=== PATIENT | female | born 1955 | race Caucasian/White ===

== ENCOUNTER 2017-05-24 10:53 | Observation (INO) ==
[2017-05-24 11:54] LABS: Basophils % 0.3 %; Eosinophils # 0.1 K/mcL (0.0-0.6); Eosinophils % 1.8 %; Hematocrit 43.6 % (35.3-44.9); Hemoglobin 14.5 g/dL (11.5-15.4); Immature Granulocytes % 0.2 % (0-4); Lymphocytes # 2.1 K/mcL (0.6-4.6); Mean Corpuscular HGB Conc 33.3 g/dL (31.6-35.5); Mean Corpuscular Hemoglobin 27.8 pg (28.0-33.3); Mean Corpuscular Volume 83.7 fL (83.0-100.0); Mean Platelet Volume 8.9 fL (9.4-12.4); Monocytes # 0.5 K/mcL (0.0-1.3); Monocytes % 7.6 %; Neutrophils # 3.6 K/mcL (1.6-8.9); Platelet Count 296 K/mcL (140-400); Red Blood Count 5.21 M/mcL (3.82-4.97); Red Cell Distribution Width 13.3 % (11.5-14.5); Segmented Neutrophils % 57.1 %
[2017-05-24 12:10] LABS: BUN/Creatinine Ratio 17 (6-26); Blood Urea Nitrogen 13 mg/dL (7-20); Calcium 9.5 mg/dL (8.6-10.8); Carbon Dioxide 25 mEq/L (19-29); Chloride 109 mEq/L (98-109); Glucose 91 mg/dL (70-99); Osmolality,Calculated 294 (280-300); Potassium 4.6 mEq/L (3.5-4.5); Sodium 142 mEq/L (136-145); eGFR For African Americans > 60 (> 60); eGFR For Non-African Americans > 60 (> 60)
--- NOTE | 2017-05-24 12:41 | Emergency Department Note ---
Disposition Clinical Impression: Chest pain Qualifiers: Chest pain type: other chest pain Qualified Code(s): R07.89 - Other chest pain ; R07.8 - Other chest pain Disposition: Admitted As Inpatient Condition: Good Referrals: Adrien Mckeon MD [Primary Care Provider] - Forms: ED Satisfaction Letter Time of Disposition: 13:06 General Adult HPI - General Chief complaint: ED Chest Pain Stated complaint: chest pain Time Seen by Provider: 05/24/17 11:03 Source: patient Mode of arrival: ambulatory Limitations: no limitations Nursing Notes Reviewed: Yes Vital Signs Reviewed: Yes - History of Present Illness HPI Narrative: 61-year-old female presented to the emergency department complaining of chest pain. Patient states since Wednesday she has been having chronic reproducible chest pain located near her left breast. It does not radiate. She denies any diaphoresis, nausea, vomiting with these symptoms. He states proximal and 4 weeks ago she fell on her left side but has not had any complications from that fall. She saw her primary care physician this week who told her to take ibuprofen and to come to the emergency department if the pain got worse. Patient has not tried anything at home for this pain. She states it is worse when she moves around or when she takes a deep breath. Patient did have an echo and stress test completed approximately 2 years ago which was within normal limits. Patient denies any shortness of breath, nausea, vomiting, abdominal pain. She states she has no other medical conditions. Patient has no other complaints at this time. Pain Scale: 5 - Related Data Allergies Allergy/AdvReac Type Severity Reaction Status Date / Time aspirin [ASA] Allergy Hives Verified 11/22/15 10:13 cephalexin [From Keflex] Allergy Hives Verified 11/22/15 10:13 All systems ED: reviewed and negative except as stated. Constitutional: Denies: fever, chills, weakness Eyes: Reports: as per HPI ENT ED: Reports: as per HPI Cardiovascular: Reports: chest pain. Denies: palpitations, dyspnea on exertion Respiratory: Denies: cough, dyspnea, wheezes Gastrointestinal: Denies: abdominal pain, nausea, vomiting Genitourinary: Reports: as per HPI Musculoskeletal: Reports: as per HPI Integumentary: Denies: rash, abrasion, lesions Neurological: Reports: as per HPI Psychiatric: Reports: as per HPI Endocrine: Reports: as per HPI Hematological/Lymphatic: Reports: as per HPI Allergic/Immunologic: Reports: as per HPI Past Medical History - Past Medical History Attestation: Yes The following information was validated with the patient. Medical history: Reports: asthma, hypertension Surgical history: Reports: cholecystectomy Psychiatric history: Reports: anxiety - Social History Smoking Status: Never smoker Smokeless Tobacco Status: No Drug use: Reports: none Physical Exam - General Limitations: no limitations General appearance: alert, in no apparent distress - Head Head exam: atraumatic, normocephalic, normal inspection - Eye Eye exam: Present: normal appearance. Absent: scleral icterus, conjunctival injection - Chest Chest inspection: Present: normal inspection, symmetric chest wall rise, tenderness (Reproducible tenderness over the superior medial aspect of the breast. No obvious mass noted. No ecchymosis or crepitus noted.) - Respiratory Respiratory exam: Present: normal lung sounds bilaterally. Absent: respiratory distress, wheezes - Cardiovascular Cardiovascular exam: Present: regular rate, normal rhythm, normal heart sounds - Abdominal Exam Abdominal exam: Present: soft, Non-Tender. Absent: distention, guarding, rebound - Extremities Exam Extremities exam: Present: normal inspection, full ROM - Neurological Exam Neurological exam: Present: alert, oriented X3 - Psychiatric Psychiatric exam: Present: normal affect, normal mood - Skin Skin exam: Present: warm, intact Course Course Narrative: 61-year-old female presenting to the emergency department with complaint of reproducible chest pain. Patient was previously worked up approximately 2 years ago with a stress echo which was within normal limits. Although today she does have nonspecific changes on her EKG. We will perform a chest pain workup including troponin, EKG we will also obtain an x-ray of the left ribs. Disposition pending results. Patient alert and oriented 3 in the room. She is compliant with this plan and is stable at this time with stable vital signs. - Reevaluation(s) Reevaluation #1: All patient's lab work has come back within normal limits including chest and rib x-rays. Upon reevaluation the patient she did state she had chest pressure this morning on exertion while trying to carry suitcases and some nausea during that time. Due to this concerning history and the nonspecific EKG changes of ischemia we will admit the patient at this time for chest pain rule out. Patient's alert and oriented 3 and the remainder stable vital signs at this time. She agrees with this plan. at bedside also agrees with this plan. Spoke with the hospitalist Dr. Navarrete who agrees to accept the patient at this time Time: 13:06 Vital Signs Temperature 97.8 F 05/24/17 11:00 Pulse Rate 75 05/24/17 11:00 Respiratory Rate 18 05/24/17 11:00 Blood Pressure 121/84 05/24/17 11:00 O2 Sat by Pulse Oximetry 97 05/24/17 11:00 Temperature 97.8 F 05/24/17 11:00 Pulse Rate 75 05/24/17 11:00 Respiratory Rate 18 05/24/17 11:00 Blood Pressure 121/84 05/24/17 11:00 O2 Sat by Pulse Oximetry 97 05/24/17 11:00 Oxygen Delivery Oxygen Delivery Room Air Medical Decision Making - Medical Records Medical records reviewed: Yes I reviewed the patient's medical records. - Lab Data Lab results reviewed: Yes I reviewed the patient's lab results. Result diagrams: 05/24/17 11:42 05/24/17 11:42 Lab Results 05/24/17 05/24/17 05/24/17 Range/Units 11:42 11:42 11:42 WBC 6.3 (4.3-11.1) K/mcL RBC 5.21 H (3.82-4.97) M/mcL Hgb 14.5 (11.5-15.4) g/dL Hct 43.6 (35.3-44.9) % MCV 83.7 (83.0-100.0) fL MCH 27.8 L (28.0-33.3) pg MCHC 33.3 (31.6-35.5) g/dL RDW 13.3 (11.5-14.5) % Plt Count 296 (140-400) K/mcL MPV 8.9 L (9.4-12.4) fL Immature Gran % 0.2 (0-4) % Seg Neutrophils % 57.1 % Lymphocytes % 33.0 % Monocytes % 7.6 % Eosinophils % 1.8 % Basophils % 0.3 % Neutrophils # 3.6 (1.6-8.9) K/mcL Lymphocytes # 2.1 (0.6-4.6) K/mcL Monocytes # 0.5 (0.0-1.3) K/mcL Eosinophils # 0.1 (0.0-0.6) K/mcL Basophils # 0.0 (0.0-0.2) K/mcL Sodium 142 (136-145) mEq/L Potassium 4.6 H (3.5-4.5) mEq/L Chloride 109 (98-109) mEq/L Carbon Dioxide 25 (19-29) mEq/L BUN 13 (7-20) mg/dL Creatinine 0.76 (0.57-1.11) mg/dL Est GFR ( Amer) > 60 (> 60) Est GFR (Non-Af Amer) > 60 (> 60) BUN/Creatinine Ratio 17 (6-26) Glucose 91 (70-99) mg/dL Calculated Osmolality 294 (280-300) Calcium 9.5 (8.6-10.8) mg/dL Troponin I 0.00 (0-0.03) ng/mL - Radiology Data Radiology results reviewed: Yes I reviewed the patient's radiology results. Ribs w/Chest X-Ray 05/24/17 11:25 IMPRESSION: Intact left ribs. No acute abnormality. D/ / Michael Clark MD / Michael Clark MD Interpreting Provider: Michael Clark MD - EKG Data EKG #1 EKG attestation: Yes I reviewed and interpreted this EKG. EKG results narrative: Sinus rhythm 76 bpm nonspecific T-wave abnormalities in V1, V2, aVL. RI interval 202, QRS 76, QTc 389. Attestation Statement - Attestation Attestation: I examined this patient and my medical decision-making was reviewed with the Resident Physician, Dr. Keller. I agree with the documented findings, disposition and treatment plan as described except to the extent set forth below. Patient is a 61-year-old white female history of hypertension who presents emergency Department with complaints initially of reproducible chest wall pain along the left sternal border and along her anterior lateral lower ribs. Patient reports falling while outside working approximately 3 weeks ago and landing onto her left shoulder and anterior chest wall. Patient insists that she has not had any chest wall pain or pain that is exacerbated with movement or deep breathing for over 3 weeks since that fall. She has no overlying bruising or abrasions noted to the area but has noticed that she has been having some tenderness in the chest that started 3 weeks after the fall. This began last Wednesday. Patient then reports after being on a camping trip over the weekend she came home last night and was carrying and heavy luggage from the car and on exerting herself to do this she became diaphoretic she became short of breath she had worsening pain but this time described it as "an elephant sitting on my chest" and it was associated with severe overwhelming nausea. Because the patient to sit down and rest and after a few minutes the symptoms abated. Patient reports when she got back To continue bringing in luggage that the symptoms recurred again and caused her to have to sit down and rest. Since that time patient's been experiencing underlying nausea which is worsened with exertion as well as shortness of breath and chest discomfort. Currently here in the ER while at rest patient is having no chest heaviness nausea shortness of breath or any other symptoms but does have the reproducible chest wall pain in her left anterior chest with palpation. I agree with patient's physical exam findings as documented vital signs are stable on arrival. EKG on arrival shows normal sinus rhythm with T-wave inversion in the anterior leads. We have no old EKG for comparison. Patient received aspirin and was kept on cardiac surgeon and pulse ox labs were obtained and a chest x-ray including left rib series was obtained. Chest x-ray was unremarkable for any rib injury, no pneumothorax and no acute abnormality was seen. Patient's labs including her troponin were unremarkable. I am concerned about the exertional component of the symptoms over the last 24-36 hours and patient's heart score equals 4. I spoke with the patient and patient is in agreement with staying in the hospital for further evaluation of this chest pain. Case was discussed with hospitalist who accepted patient for admission for further evaluation and management. Patient remains pain-free at this time with stable vital signs.
[2017-05-24] MEDS ORDERED: Ondansetron 4 MG/2 ML VIAL IVP PRN (14:56)
[2017-05-24] MEDS ORDERED: *HR* Morphine 2 MG/ML SYRINGE IVP PRN (14:56)
[2017-05-24] MEDS ORDERED: Acetaminophen 325 MG TABLET PO PRN (14:56)
[2017-05-24] MEDS ORDERED: Naloxone 0.4 MG/ML INJ IVP PRN (14:56)
[2017-05-24] MEDS ORDERED: Nitroglycerin 0.4 MG TAB.SUBL SL PRN (15:02)
[2017-05-24] MEDS ORDERED: Ipratropium/Albuterol Neb 3 ML IH PRN (15:52)
--- NOTE | 2017-05-24 15:56 | Internal Med History&Physical ---
<Riley Rodríguez - Last Filed: 05/24/17 16:18> Date of Encounter: 05/24/17 Time of Encounter: 14:00 Assessment and Plan (1) Chest pain Current visit: Yes Status: Acute Acute chest pain since last Wednesday that pt. describes as intermittent sharp, stabbing pain followed by pressure in left chest w/radiation to left arm. Pt. reports acute fall 4 weeks ago w/o complication. XR of chest/ribs today shows no acute fracture. Pt. denies history of cardiac issues or CAD but reports previous stress test 2 years ago. Initial troponin 0.00. Trend 2. Continuous cardiac telemetry. Echocardiogram ordered. Nitroglycerin PRN. Patient nothing by mouth at midnight for ordered stress test in a.m. We will consider cardiology consult based on echocardiogram and stress test results. Homocysteine level and D-dimer ordered. Pt. is at high risk for cardiac event based on current sx and familial hx/risk factors. Observation. Qualifiers: Chest pain type: other chest pain Qualified Code(s): R07.89 - Other chest pain; R07.8 - Other chest pain (2) Dizziness Current visit: Yes Status: Acute Acute dizziness w/reported changes in vision (blurriness) for several weeks. Orthostatic BPs and VS. Bilateral carotid Doppler duplex imaging ordered. MRI of head/brain w/o contrast to r/o ischemia. Falls/safety precautions. Continuous cardiac telemetry. (3) Asthma Current visit: Yes Status: Chronic Hx of chronic mild asthma w/o complication. Pt also reports seasonal allergies. Continue pts. Loratadine and Singulair. Duo nebs every 6 when necessary. Supplemental O2 with titration and SPO2 monitoring. Qualifiers: Asthma severity: mild Asthma persistence: intermittent Asthma complication type: uncomplicated Qualified Code(s): J45.20 - Mild intermittent asthma, uncomplicated (4) GERD (gastroesophageal reflux disease) Current visit: Yes Status: Chronic Hx of chronic GERD. IVP Zofran Q6 PRN for nausea. IVP Protonix 40 mg BID. Qualifiers: Esophagitis presence: esophagitis presence not specified Qualified Code(s) : K21.9 - Gastro-esophageal reflux disease without esophagitis (5) DVT prophylaxis Current visit: Yes Status: Acute Heparin 5000 units SQ Q8 for DVT prophylaxis. Internal Medicine - H&P: HPI Chief complaint: Chest pain Admitted From: Emergency Dept Plans for Post Hospital Care: Home History of present illness: Ms. López is a 61 year old female with medical history of asthma and GERD presents from the ED with chief complaint of chest pain she describes as occurring in her left chest with radiation to her left arm since last Wednesday. She describes the pain as sharp and stabbing intermittently with pressure following. Vision also reports changes in vision and dizziness. She states she had a stress test approximately 2 years ago. States she fell approximately 4 weeks ago on her left side but had no complications from this fall. Patient reports shortness of breath, dizziness, changes in vision ( blurriness), chest pain, nausea but denies recent illness, fever, chills, vomiting, numbness, tingling, abdominal pain, diarrhea, constipation, palpitations, pre-syncope, or syncope. Past Med Surg Social Fam HX - Past Medical History Source: patient, old records reviewed, obtained from family Medical history: asthma, GERD Psychiatric history: anxiety - Past Surgical History Surgical History: cholecystectomy, other (Tonsillectomy) - Social History Smoking Status: Never smoker Smokeless Tobacco Status: No Drug use: none Current living situation: Home, With Family Activity Level: Independent ambulation Recent Out of Country Travel Within the Last 8 Weeks: No Exposure or Possible Exposure to Illness During Travel: No - Family History Father Race: Family Member Ethnicity: Non- Living Status: Still Living Hx Family Respiratory Disorders: Yes (Mesothelioma) Hx Family Cancer: Yes (Prostate) Hx Family Neurologic Disorders: Yes (Dementia) Mother Race: Family Member Ethnicity: Non- Living Status: Age at : 78 Cause of : Kidney failure Hx Family Cardiac Disorders: Yes (HTN, CAD, Stents x3) Hx Family Genitourinary Disorders: Yes (CKD) Hx Family Endocrine Disorder: Yes (DM) Hx Family Musculoskeletal Disorders: Yes (Osteoporosis) Brother History Unknown: Yes Race: Family Member Ethnicity: Non- Living Status: Still Living Sister Race: Family Member Ethnicity: Non- Living Status: Still Living Hx Family Cardiac Disorders: Yes (Stroke) Hx Family Psychosocial Disorders: Yes (Depression) Internal Medicine - H&P: Meds Amitriptyline [Elavil] 25 mg PO HS 05/24/17 [History] Loratadine [Allergy Relief] 10 mg PO DAILY 05/24/17 [History] Montelukast [Singulair] 10 mg PO DAILY 05/24/17 [History] Ranitidine HCl [Acid Escalator Operator] 150 mg PO BID 05/24/17 [History] 3 Allergy/AdvReac Type Severity Reaction Status Date / Time aspirin [ASA] Allergy Hives Verified 11/22/15 10:13 cephalexin [From Keflex] Allergy Hives Verified 11/22/15 10:13 All Systems PM: A 10-system review of systems was performed and is negative for pertinent findings except as documented above in the HPI. - Constitutional Constitutional: no chills, no fever(s), no night sweats - EENT Eyes: as per HPI, blurry vision Ears: no ear discharge, no ear pain, no tinnitus Nose, mouth and throat: no dysphagia, no nasal discharge, no neck pain, no sore throat - Breasts Breasts: as per HPI - Cardiovascular Cardiovascular ROS IM: as per HPI, chest pain, dyspnea, no diaphoresis, no lightheadedness, no palpitations, no syncope - Respiratory Respiratory: as per HPI, dyspnea - Gastrointestinal Gastrointestinal: as per HPI, nausea, no abdominal pain, no diarrhea, no hematemesis, no hematochezia, no melena, no vomiting - Genitourinary Genitourinary: no change in urinary stream, no dysuria, no flank pain, no hematuria Menstruation: as per HPI - Musculoskeletal Musculoskeletal ROS IM: no numbness, no tingling - Integumentary Integumentary IM: no rash, no unusual bruising - Neurological Neurological ROS: no confusion, no convulsions, no focal weakness, no numbness, no tingling, no tremor(s) - Psychiatric Psychiatric: as per HPI - Endocrine Endocrine IM: as per HPI - Hematologic/Lymphatic Hematologic/Lymphatic: no easy bruising - Allergic/Immunologic Allergic/Immunologic: as per HPI - Constitutional Vitals: Temp Pulse Resp BP Pulse Ox 97.8 F 65 16 147/76 96 05/24/17 11:00 05/24/17 14:02 05/24/17 14:02 05/24/17 14:02 05/24/17 14:02 General appearance: Present: cooperative, mild distress, A&O X 3, pleasant, obese, answers questions appropriately - Head Head exam: Present: atraumatic, normal inspection, normocephalic - Eye Eye exam: Present: PERRL, conjuntiva pink, sclera anicteric Pupils: Present: PERRL - ENT ENT exam: Present: normal exam, normal external ear exam - Neck Neck exam general surgery: Present: normal inspection, supple, trachea midline. Absent: lymphadenopathy - Respiratory Respiratory exam: Present: CTAB. Absent: accessory muscle use, rales, rhonchi, wheezes - Cardiovascular Cardiovascular exam: Present: RRR, +S1, +S2. Absent: diastolic murmur, gallop, rubs, systolic murmur - GI/Abdominal GI/Abdominal exam: Present: normal bowel sounds, soft, no peritoneal signs. Absent: distended, tenderness - Rectal Rectal exam: Present: deferred - Additional comments: exam deferred. - Extremities Exam Extremities exam: Present: warm, radial pulses palpable and symmetrical. Absent : calf tenderness, cyanotic, pedal edema - Back Exam Back exam: Present: normal inspection - Neurological Exam Neurological exam: Present: CN II-XII intact, oriented X3, no focal deficits. Absent: pronater drift, facial droop, speech deficit - Psychiatric Psychiatric exam: Present: normal affect, normal mood - Skin Skin exam: Present: dry, intact Internal Med - H&P Results - Labs CBC & Chem 7: 05/24/17 11:42 05/24/17 11:42 Labs: Short CBC 05/24/17 Range/Units 11:42 WBC 6.3 (4.3-11.1) K/mcL Hgb 14.5 (11.5-15.4) g/dL Hct 43.6 (35.3-44.9) % Plt Count 296 (140-400) K/mcL Neutrophils # 3.6 (1.6-8.9) K/mcL BMP 05/24/17 11:42 Sodium 142 Potassium 4.6 H Chloride 109 Carbon Dioxide 25 BUN 13 Creatinine 0.76 Glucose 91 Calcium 9.5 Cardiac Enzymes 05/24/17 Range/Units 11:42 Troponin I 0.00 (0-0.03) ng/mL - EKG Data EKG shows normal: sinus rhythm - EKG Data Prior EKG available for review: no EKG comments: 05/24/17 16:03 EKG dated 05/24/17 shows sinus rhythm with nonspecific ST and T-wave abnormality. Abnormal ECG. - Impressions ITS Impressions Ribs w/Chest X-Ray 05/24/17 11:25 IMPRESSION: Intact left ribs. No acute abnormality. D/ / Michael Clark MD / Michael Clark MD Interpreting Provider: Michael Clark MD - Diagnostic Studies Chest x-ray Additional comments: Impressions Ribs w/Chest X-Ray 05/24/17 11:25 IMPRESSION: Intact left ribs. No acute abnormality. D/ / Michael Clark MD / Michael Clark MD Interpreting Provider: Michael Clark MD <Celestino Osorio N - Last Filed: 05/24/17 21:32> Date of Encounter: 05/24/17 Internal Medicine - H&P: HPI History of present illness: Ms. López is a 61 year old female complaining of left-sided chest wall pain worse with deep breath and depending. Patient denies any shortness of breath now. Patient denies any dizziness lightheadedness All Systems PM: A 10-system review of systems was performed and is negative for pertinent findings except as documented above in the HPI. - Constitutional Vitals: Temp Pulse Resp BP Pulse Ox 97.8 F 65 16 153/73 96 05/24/17 11:00 05/24/17 14:02 05/24/17 17:22 05/24/17 17:22 05/24/17 14:02 Internal Med - H&P Results - Labs CBC & Chem 7: 05/24/17 11:42 05/24/17 11:42 Labs: Cardiac Enzymes 05/24/17 Range/Units 17:50 Troponin I 0.00 (0-0.03) ng/mL - Impressions ITS Impressions Shoulder X-Ray 05/24/17 16:15 IMPRESSION: No acute abnormality. D/ / Raymond Celestin MD / Raymond Celestin MD Interpreting Provider: Raymond Celestin MD - Attending Attestation I have personally performed a face to face evaluation on this patient. I have reviewed and agree with the care plan. History and Exam by me shows: 61-year-old female came to the hospital complaining of left-sided chest wall pain and left arm pain. Patient states her pain get worse with taking deep breaths or with bending Vital signs stable Chest clear to auscultation bilateral, left side chest wall tenderness Heart S1-S2 normal regular rate and rythm Abdomen soft nontender nondistended no organomegaly Extremities no edema Assessment and plan Chest pain Possible costochondritis Add 1 dose of Solu-Medrol, may consider naproxen twice a day 2 Close monitoring for any arrhythmia or any recurrent chest pain overnight, continue aspirin and nitroglycerin as needed
[2017-05-24] MEDS ORDERED: Perflutren Lipid Microsphere 1.3 ML in 0.9 % Sodium Chloride 8.7 ML IVP ONE (19:54)
[2017-05-24] MEDS ORDERED: Perflutren Lipid Microsphere 2 ML VIAL ONE (19:57)
[2017-05-24] MEDS: *HR* Heparin 5,000 UNIT/ML VIAL SQ SCH (21:35)
[2017-05-24] MEDS: Pantoprazole 40 MG VIAL IVP SCH (21:36)
[2017-05-24] MEDS: *HR* HYDROcodone/Acet 5/325 mg TABLET PO PRN (22:04)
[2017-05-25 00:37] LABS: Basophils % 0.4 %; Eosinophils # 0.1 K/mcL (0.0-0.6); Eosinophils % 1.9 %; Hematocrit 40.2 % (35.3-44.9); Hemoglobin 13.4 g/dL (11.5-15.4); Immature Granulocytes % 0.1 % (0-4); Lymphocytes # 3.2 K/mcL (0.6-4.6); Lymphocytes % 43.4 %; Mean Corpuscular HGB Conc 33.3 g/dL (31.6-35.5); Mean Corpuscular Volume 84.1 fL (83.0-100.0); Mean Platelet Volume 9.3 fL (9.4-12.4); Monocytes # 0.5 K/mcL (0.0-1.3); Monocytes % 7.2 %; Neutrophils # 3.5 K/mcL (1.6-8.9); Platelet Count 272 K/mcL (140-400); Red Blood Count 4.78 M/mcL (3.82-4.97); Red Cell Distribution Width 13.3 % (11.5-14.5)
[2017-05-25 00:42] LABS: Prothrombin Time 10.8 Seconds (9.4-12.1)
[2017-05-25 00:44] LABS: Activated Partial Thrombo Time 30.2 Seconds (26.0-36.0)
[2017-05-25 00:50] LABS: Alanine Aminotransferase 13 Units/L (0-55); Albumin 3.6 g/dL (3.5-5.0); Alkaline Phosphatase 80 Units/L (38-126); Aspartate Amino Transferase 16 Units/L (5-34); BUN/Creatinine Ratio 16 (6-26); Bilirubin,Total 0.8 mg/dL (0.2-1.2); Blood Urea Nitrogen 14 mg/dL (7-20); Calcium 9.2 mg/dL (8.6-10.8); Carbon Dioxide 22 mEq/L (19-29); Chloride 108 mEq/L (98-109); Chol/HDL Ratio 3.5 (0-4.9); Cholesterol 170 mg/dL (< 200); Globulin 3.5 g/dL (2.4-3.5); Glucose 127 mg/dL (70-99); HDL Cholesterol 48 mg/dL (40-59); LDL Cholesterol,Calculated 99 mg/dL (0-99); Osmolality,Calculated 294 (280-300); Potassium 3.6 mEq/L (3.5-4.5); Sodium 141 mEq/L (136-145); Total Protein 7.1 g/dL (6.0-8.3); Triglycerides 117 mg/dL (< 150); eGFR For African Americans > 60 (> 60); eGFR For Non-African Americans > 60 (> 60)
[2017-05-25] MEDS: MethylPREDNISolone 40 MG/ML VIAL IVP SCH ×2 (00:55→10:23)
[2017-05-25 01:36] LABS: Hemoglobin A1C 5.3 %
[2017-05-25] MEDS ORDERED: Regadenoson 0.4 MG/5 ML SYRINGE IVP ONE (05:53)
[2017-05-25] MEDS: *HR* Heparin 5,000 UNIT/ML VIAL SQ SCH (06:06)
[2017-05-25] MEDS ORDERED: Loratadine 10 MG TABLET PO SCH (09:00)
[2017-05-25] MEDS: Pantoprazole 40 MG VIAL IVP SCH (10:23)
[2017-05-25] MEDS: *HR* HYDROcodone/Acet 5/325 mg TABLET PO PRN (10:23)
[2017-05-25 10:44] VITALS: BP 129/74
[2017-05-25 12:40] LABS: Adenovirus Not Detected (Not Detect); Bordetella Pertussis Not Detected (Not Detect); Chlamydophila pneumoniae Not Detected (Not Detect); Coronavirus 229E Not Detected (Not Detect); Coronavirus HKU1 Not Detected (Not Detect); Coronavirus NL63 Not Detected (Not Detect); Coronavirus OC43 Not Detected (Not Detect); Human Metapneumovirus Not Detected (Not Detect); Human Rhinovirus/Enterovirus Not Detected (Not Detect); Influenza A Subtype 2009 H1 Not Detected (Not Detect); Influenza A Untypeable Not Detected (Not Detect); Influenza B Not Detected (Not Detect); Mycoplasma pneumoniae Not Detected (Not Detect); Parainfluenza Virus 1 Not Detected (Not Detect); Parainfluenza Virus 2 Not Detected (Not Detect); Parainfluenza Virus 3 Not Detected (Not Detect); Parainfluenza Virus 4 Not Detected (Not Detect); Respiratory Syncytial Virus Not Detected (Not Detect)
--- NOTE | 2017-05-25 13:33 | Discharge Summary ---
Date of Encounter: 05/25/17 Time of Encounter: 09:30 - Discharge Diagnosis (1) Chest pain Priority: Primary Status: Acute Comments: Emi López is a 61 year old female with past medical history asthma, seasonal allergies and GERD who presented to [facility] on 05/24/2017 with complaints of chest pain. She is placed in observation status for ACS rule out. She underwent a negative stress test and was discharged home in stable condition with outpatient follow-up. 1. Musculoskeletal chest pain: Presented with chest pain started on day of arrival. Serial troponins negative, EKG without acute ST changes. CXR negative. 05/25/2017 stress test negative for ischemia or infarct. Chest CTA negative for pulmonary embolism. Likely musculoskeletal and/or pleuritic etiology as chest pain is reproducible with light palpation and worse with inspiration. Symptoms improved with IV steroids. Steroid burst at discharge. Warm compress per patient discretion. Can follow up with PCP. 2. Asthma exacerbation: Has known history of asthma. With scattered wheezing, cough and dyspnea on exam. Respiratory PCR negative. Patient reports symptoms consistent with previous asthma exacerbation. Symptoms improved with IV steroids and breathing treatments. Steroid burst at discharge. Continue home nebs and rescue inhaler. Recommend follow-up with PCP and/or office equipment technician within 5-7 days. 3. Seasonal allergies: Per history. Follows with Dr. Fried. Continue home Claritin, Singulair. Follow-up with Dr. Fried previously planned. Qualifiers: Chest pain type: other chest pain Qualified Code(s): R07.89 - Other chest pain; R07.8 - Other chest pain (2) Asthma Priority: Primary Status: Acute Qualifiers: Asthma severity: mild Asthma persistence: persistent Asthma complication type: with acute exacerbation Qualified Code(s): J45.31 - Mild persistent asthma with (acute) exacerbation - Discharge Medications Prescriptions: Ipratropium/Albuterol Neb [Duoneb] 3 ml IH Q4HR PRN #30 vial.neb PRN Reason: Shortness Of Breath/Wheezing predniSONE [PredniSONE] 40 mg PO DAILY #10 tablet Home Medications: Amitriptyline [Elavil] 25 mg PO HS 05/24/17 [History] Loratadine [Allergy Relief] 10 mg PO DAILY 05/24/17 [History] Montelukast [Singulair] 10 mg PO DAILY 05/24/17 [History] Ranitidine HCl [Acid Truck Hopper] 150 mg PO BID 05/24/17 [History] Ipratropium/Albuterol Neb [Duoneb] 3 ml IH Q4HR PRN #30 vial.neb 05/25/17 [Rx] predniSONE [PredniSONE] 40 mg PO DAILY #10 tablet 05/25/17 [Rx] Allergies/Adverse Reactions: 3 Allergy/AdvReac Type Severity Reaction Status Date / Time aspirin [ASA] Allergy Hives Verified 11/22/15 10:13 cephalexin [From Keflex] Allergy Hives Verified 11/22/15 10:13 Procedures/tests Complete & Pending: Procedures Performed prior 72 hours Category Date Time Status CTA chest [CT angio chest] [CT] Stat Cat Scan 05/25/17 10:37 Completed Date of admission: 05/24/17 16:11 Primary care physician: Adrien Mckeon MD Discharging clinician: Alondra Serrano Anticipated date of discharge: 05/25/17 - Patient Status Disposition: Home, Self-Care Condition: Good Functional capacity at discharge: independent ambulation Overall status at discharge: patient is progressing back to baseline - Discharge Instructions Instructions: Asthma (DC), Noncardiac Chest Pain (DC), Prednisone (By mouth) Follow Up With: Adrien Mckeon MD [Primary Care Provider] - - Diet and Activity Activity: increase activity as tolerated Diet: advance to your usual diet Interval History: Seen and examined at bedside, patient is new to me. Information obtained from chart review and patient report. Says chest pain is overall improved but still with intermittent left chest pain which is reproducible on exam and worse with inspiration. She does feel like she having an asthma exacerbation. She is a dry, nonproductive cough. No fevers or chills. Hospital course: See assessment and plan for hospital course - Time Spent with Patient Total time spent providing and/or coordinating discharge services: - Constitutional Vitals: Temp Pulse Resp BP Pulse Ox 97.6 F 79 18 129/74 96 05/25/17 10:42 05/25/17 10:42 05/25/17 10:42 05/25/17 10:42 05/25/17 10:42 General appearance: Present: cooperative, mild distress, A&O X 3, pleasant, obese, answers questions appropriately - Head Head exam: Present: atraumatic, normocephalic - Eye Eye exam: Present: PERRL, conjuntiva pink, sclera anicteric Pupils: Present: PERRL - Neck Neck exam general surgery: Present: supple, trachea midline. Absent: lymphadenopathy - Respiratory Respiratory exam: Present: chest wall tenderness, wheezes. Absent: accessory muscle use, rales, rhonchi - Cardiovascular Cardiovascular exam: Present: RRR, +S1, +S2. Absent: diastolic murmur, gallop, rubs, systolic murmur - GI/Abdominal GI/Abdominal exam: Present: normal bowel sounds, soft, no peritoneal signs. Absent: distended, tenderness - Extremities Exam Extremities exam: Present: warm, radial pulses palpable and symmetrical. Absent : calf tenderness, cyanotic, pedal edema - Neurological Exam Neurological exam: Present: CN II-XII intact, oriented X3, no focal deficits. Absent: pronater drift, facial droop, speech deficit - Skin Skin exam: Present: dry, intact
--- NOTE | 2017-05-26 08:21 | Electrocardiograph Report ---
[place] [id number] Test Date: 2017-05-24 Pat Name: Emi López Department: 104 Room: 3B65 Gender: F Benefit Authorizer: ISSAC : [id number] Requested By: Jessica See Order Number: [id number] Reading MD: Lona Wang Measurements Intervals [place] Rate: 76 P: 51 MO: 202 QRS: 21 QRSD: 76 T: 103 QT: 359 QTc: 389 Interpretive Statements SINUS RHYTHM NONSPECIFIC ST & T-WAVE ABNORMALITY Electronically Signed On 05-26-2017 8:19:50 EDT by Lona Wang
== END 2017-05-25 14:10 | disposition home or self-care (01) ==
LOC: EMEROO 10:53 → 3BNU 10:53
PROVIDERS: ADMIT Registered Nurse; ATTEND Registered Nurse